=== PATIENT | male | born 1995 | race Caucasian/White ===

== ENCOUNTER 2016-12-18 22:01 | Emergency (ER) | payer BC ==
[~2016-12-18] VITALS: Ht 177.8 cm; Wt 104.5 kg
[2016-12-18 22:14] VITALS: BP 134/87; TEMP 98.2
[2016-12-18] MEDS ORDERED: PROAIR HFA0.09 MG/AC IH (22:16)
[2016-12-18 23:47] VITALS: PULSE 82
== END 2016-12-18 23:47 | disposition home or self-care (01) ==
LOC: COL.ER 22:01
DX: S61.212A Laceration without foreign body of right middle finger without damage to nail, initial encounter (principal); W22.8XXA Striking against or struck by other objects, initial encounter; Y92.009 Unspecified place in unspecified non-institutional (private) residence as the place of occurrence of the external cause